=== PATIENT | female | born 1935 | race Caucasian/White ===

== ENCOUNTER 2019-09-29 09:04 | Inpatient (IN) | payer MEDICARE, OTHER ==
[~2019-09-29] VITALS: Ht 154.9 cm; Wt 88.6 kg
[~2019-09-29 09:04] MED LIST: ATOR40TA PO; BENADRYL25 MG PO; ENOX100I SC; FLUT44OIA INH; FURO20 PO; Hydrochloroth12.5 MG PO; SERT100 PO; SERT50 PO; Tylophen500 MG PO; VALS80 PO; [UNRECOGNIZED DRUG - OTHER] PO
[2019-09-29 09:29] LABS: BASOPHILS ABSOLUTE AUTO 0.02 K/mm3 (0.00-0.23); BASOPHILS PERCENT AUTO 0 % (0-2); EOSINOPHILS ABSOLUTE AUTO 0.26 K/mm3 (0.00-0.68); EOSINOPHILS PERCENT AUTO 3 % (0-6); Hematocrit 35.5 % (33.0-51.0); IMMATURE GRAN ABSOLUTE AUTO 0.04 K/mm3 (0.00-0.10); IMMATURE GRAN PERCENT AUTO 0 % (0-1); LYMPHOCYTES ABSOLUTE AUTO 3.05 K/mm3 (0.84-5.20); LYMPHOCYTES PERCENT AUTO 29 % (21-46); MONOCYTES ABSOLUTE AUTO 0.58 K/mm3 (0.16-1.47); MONOCYTES PERCENT AUTO 6 % (4-13); Mean Corpuscular HGB 28.6 pg (26.0-34.0); Mean Corpuscular Volume 92 fL (80-100); Mean Platelet Volume 11.4 fL (9.1-12.4); NEUTROPHILS ABSOLUTE AUTO 6.42 K/mm3 (1.96-9.15); NEUTROPHILS PERCENT AUTO 62 % (41-73); Platelet Count 223 K/mm3 (150-400); RDW Coefficient Variation 13.9 % (11.7-14.2); RDW Standard Deviation 47.6 fL (35.1-46.3); Red Blood Cell Count 3.84 M/mm3 (3.80-5.20); White Blood Cell Count 10.37 K/mm3 (4.00-11.30)
[2019-09-29 09:46] LABS: Albumin, Blood 3.8 g/dL (3.4-5.0); Albumin/Globulin Ratio 1.1 (0.8-1.8); Bilirubin, Total 0.9 mg/dL (0.1-1.0); Bun/Creatinine Ratio 20.3 (12.0-20.0); Calcium, Blood 8.9 mg/dL (8.5-10.1); Creatinine, Blood 1.23 mg/dL (0.40-1.00); Free Thyroxine 1.12 ng/dL (0.70-1.60); Globulin, Blood 3.5 g/dL (2.2-4.0); Magnesium, Blood 2.2 mg/dL (1.6-2.4); Potassium, Blood 3.7 mmol/L (3.5-5.5); Total Protein, Blood 7.3 g/dL (6.4-8.2); Troponin I 0.186 ng/mL (0.000-0.040)
[2019-09-29 09:51] LABS: Thyroid Stimulating Hormone 3.06 uIU/mL (0.360-4.800)
[2019-09-29] MEDS ORDERED: ELIQUIS5 MG PO (11:02)
[2019-09-29] MEDS ORDERED: LOSA25 PO (11:03)
[2019-09-29] MEDS ORDERED: ATOR40TA PO (11:03)
[2019-09-29] MEDS ORDERED: SERT100 PO (11:03)
[2019-09-29] MEDS ORDERED: TORSE20 PO (11:04)
[2019-09-29] MEDS ORDERED: LEVSOD100 PO (12:27)
[2019-09-29] MEDS ORDERED: POTCHL20ER PO (12:27)
[2019-09-29 13:33] LABS: International Normalized Ratio 1.05; Prothrombin Time Results 11.1 Sec (9.7-11.5)
--- NOTE | 2019-09-29 15:00 | NUR ---
RECEIVED THIS PATIENT FROM THE SLICING MACHINE FEEDER. S/P TRANSVENOUS PACER PLACED WITH R GROIN ACCESS. VV1 RATE 60 MV=2 V+5. ACCESS SITE IS COVERED WITH CLEAR TEGADERM DRESSING. PT IS ALERT AND ORIENTED. PT STATES TO HAVE A DULL CHEST PAIN OF 1-2/10. PT STATE SHE FEELS SHORT OF BREATH.
--- NOTE | 2019-09-29 16:28 | NUR ---
PT WAS HELPED TO THE BEDPA. PT GOT MORE SHORT OF BREATH WITH EXCERTION. PT IS VENTRICULARLY PACED WITH 100% CAPTURE. PT WAS STARTED ON 02 RE: SHORTNESS OF BREATH. O2 SATURATION HAS BEEN >90% SINCE ARRIVAL TO THE UNIT.
--- NOTE | 2019-09-29 17:05 | NUR ---
PT HAS STATED POLST LIMITED CODE BUT PT WANTS TO BE A FULL CODE AT THIS TIME. DR. DONALD WAS NOTIFIED OF PT'S FULL CODE PREFERENCE.
--- NOTE | 2019-09-29 17:55 | NUR ---
DR. SANDERS WAS NOTIFIED REGARDING PT'S TROPONIN RESULT. HE WAS ALSO NOTIFIED PT RECEIVED A TOTAL OF 20MG OF HYDRALAZINE DUE PT'S SBP UP TO 188. HE WAS NOTIFIED REGARDING PT'S COMPLAINTS OF CHEST PAIN 12/06 STILL. ORDERS RECEIVED.
--- NOTE | 2019-09-29 19:16 | NUR ---
SHIFT SUMMARY: PT IS ALERT AND ORIENTED. STILL WITH TRANSVENOUS PACER WITH 100% VENTRICULAR CAPTURE. AFEBRILE. PT STATED CHEST PAIN HAS IMPROVED AFTER RECEIVING 2 INCH OF NITROPASTE.
--- NOTE | 2019-09-29 20:00 | NUR ---
ASSUMED CARE OF PT AT 1915. REPORT RECEIVED AT BEDSIDE. PT'S TRANSVENOUS PACER SITE AT RIGHT GROIN WNL. NO HEMATOMA OR OOZING TO NOTE. PT HAS 100 PERCENT CAPTURE AT THIS TIME. BLOOD PRESSURE SOMEWHAT ELEVATED. PLEASE SEE VITAL SIGHN FLOWSHEET FOR DETAILS. WILL REVIEW CHART AND PLAN OF CARE FOR THIS PT.
--- NOTE | 2019-09-30 | NUR ---
PT CONTINUES WITHOUT CHEST PAIN. TRANSVENOUS PACER 100 PERCENT. BLOOD PRESSURES HAVE IMPROVED. PT ABLE TO ADJUST POSITIONS IN BED ON HER OWN. NO ISSUES TO REPORT.
--- NOTE | 2019-09-30 03:00 | NUR ---
NO CHANGES TO PREVIOUS ASSESSMENTS. NO COMPLAINTS BY PT. REMAINS ALERT AND ORIENTED. PLEASANT AND COOPERATIVE WITH CARE AND ASSESSMENTS.
[2019-09-30 03:57] LABS: BASOPHILS ABSOLUTE AUTO 0.01 K/mm3 (0.00-0.23); BASOPHILS PERCENT AUTO 0 % (0-2); EOSINOPHILS ABSOLUTE AUTO 0.06 K/mm3 (0.00-0.68); EOSINOPHILS PERCENT AUTO 1 % (0-6); Hematocrit 31.3 % (33.0-51.0); Hemoglobin 9.8 g/dL (11.5-16.0); IMMATURE GRAN ABSOLUTE AUTO 0.02 K/mm3 (0.00-0.10); IMMATURE GRAN PERCENT AUTO 0 % (0-1); LYMPHOCYTES ABSOLUTE AUTO 1.25 K/mm3 (0.84-5.20); LYMPHOCYTES PERCENT AUTO 16 % (21-46); MONOCYTES ABSOLUTE AUTO 0.63 K/mm3 (0.16-1.47); MONOCYTES PERCENT AUTO 8 % (4-13); Mean Corpuscular HGB 28.6 pg (26.0-34.0); Mean Corpuscular HGB Conc 31.3 g/dL (31.5-36.5); Mean Corpuscular Volume 91 fL (80-100); Mean Platelet Volume 11.2 fL (9.1-12.4); NEUTROPHILS ABSOLUTE AUTO 5.91 K/mm3 (1.96-9.15); NEUTROPHILS PERCENT AUTO 75 % (41-73); Platelet Count 184 K/mm3 (150-400); RDW Coefficient Variation 14.1 % (11.7-14.2); RDW Standard Deviation 46.9 fL (35.1-46.3); Red Blood Cell Count 3.43 M/mm3 (3.80-5.20); White Blood Cell Count 7.88 K/mm3 (4.00-11.30)
[2019-09-30 04:09] LABS: International Normalized Ratio 1.03; Prothrombin Time Results 10.9 Sec (9.7-11.5)
[2019-09-30 04:21] LABS: Magnesium, Blood 2.8 mg/dL (1.6-2.4)
[2019-09-30 04:23] LABS: Albumin, Blood 3.3 g/dL (3.4-5.0); Albumin/Globulin Ratio 1.1 (0.8-1.8); Calcium, Blood 8.7 mg/dL (8.5-10.1); Creatinine, Blood 1.15 mg/dL (0.40-1.00); Potassium, Blood 3.9 mmol/L (3.5-5.5); Total Protein, Blood 6.3 g/dL (6.4-8.2)
--- NOTE | 2019-09-30 06:54 | NUR ---
PT HAS BEEN ABLE TO REST THIS NIGHT WITHOUT COMPLAINTS OF CHEST PAIN OR PRESSURE. DENIES ANY FEELINGS OF SYNCOPE. TRANSVENOUS PACER IN PLACE AND HAS 100 PERCENT CAPTURE. WILL CONTINUE TO MONITOR PT, AND WILL REPORT OFF TO ONCOMING RN.
--- NOTE | 2019-09-30 08:00 | NUR ---
INITIAL ASSESS PT RESTING IN BED, OPENS EYES TO VOICE. PT A&OX4, PLEASANT, NO C/O OR REQUESTS. PT STATES SHE IS NPO FOR PROCEDURE. EDUCATION PROVIDED. HEART RATE 61 PER TRANS PACER VIA RT GROIN, DRSG WNL, MURMUR NOTED. LUNGS CLEAR ON 1L/NC. BS PRESENT. SKIN WNL EXCEPT AMPUTATION TO TOP HALF OF LEFT FOREFINGER AND BANDAIDES TO 2nd AND 3rd TOES R/T "FINANCIAL ADVOCATE CUT NAILS AND MADE THEM BLEED." BED IN LOW POSITION, RAILS UP X3, CALL LIGHT IN REACH, WILL CONTINUE TO MONITOR PT THIS SHIFT.
--- NOTE | 2019-09-30 09:00 | NUR ---
HORSES OR MULES TEAMSTER PT GONE TO HORSES OR MULES TEAMSTER, 09- DAUGHTER TO ICU LOOKING FOR PT AND TAKEN TO HORSES OR MULES TEAMSTER WAITING AREA BY STAFF.
--- NOTE | 2019-09-30 09:42 | NUR ---
BACK FROM PARTS COUNTERPERSON PT RETURNED FROM PARTS COUNTERPERSON PER BED, DESIREE AND STAFF AT HER SIDE. REPORT RECEIVED AND QUESTIONS ANSWERED. RT RADIAL TR BAND WITH BRUISING NOTED BUT NO BLEEDING. VS OBTAINED AND WNL. WILL MONITOR FOR BLEEDING. REMINDED PT TO KEEP RT WRIST STRAIGHT.
--- NOTE | 2019-09-30 10:10 | NUR ---
HOSPITALIST ROUNDS HERE TO DISCUSS LABS AND MEDS WITH PT. HE INFORMED PT SHE HAS SOME KIDNEY PROBLEMS THAT WILL NEED F/U. PT DTR AND SISTER AT BEDSIDE AND ALL QUESTIONS ANSWERED. DIET DISCUSSED AND PT WILL BE NPO AFTER MIDNIGHT FOR POSSIBLE PACE MAKER PLACEMENT TOMORROW.
--- NOTE | 2019-09-30 12:30 | NUR ---
PT CONTINUES TO REST IN BED, FAMILY AT BEDSIDE. PT CONTINUES TO DENY PAIN/DISCOMFORT. PT VS STABLE AFTER DISCHARGE DOOR OPERATOR AND WILL START REMOVING AIR FROM TR BAND AT THIS TIME. BRUISING NOTED UNDER BAND AND WILL CONTINUE TO EVALUATE PT VS, PAIN, BRUISING, AND S/S OF BLEEDING. PT REMAINS ON TRANSVENOUS PACER VIA RT GROIN AT RATE OF 61, V=5, VV1. SL TO LORENZO LAL.
--- NOTE | 2019-09-30 12:30 | NUR ---
START AIR RELEASE FROM RT RADIAL BAND AFTER ASSESSMENT COMPLETED, ATTEMPTED RELEASE OF 2cc OF AIR FROM RT RADIAL TR BAND. POSSIBLE SCANT BLEEDING AND 2cc REINSERTED. WILL CONTINUE WITH SITE CHECKS AND AIR RELEASE EVERY 15-30 MINUTES POSSIBLE UNTIL COMPLETED.
--- NOTE | 2019-09-30 18:00 | NUR ---
SHIFT SUMMARY PT RESTS IN BED THIS SHIFT, REFUSES TO TURN SIDE TO SIDE BUT SHIFTS WEIGHT TO REPOSITION SELF FOR COMFORT, MIN ASSIST AT TIME. HEART RATE REMAINS AT 61 ON TRANS VENOUS PACER VIA RT GROIN, WITH SETTING OF MV 5, VOLT 2. LUNGS REMAIN CLEAR, SAT >90% ON 1L/NC. BS PRESENT AND PT ATE 50% OF MEALS. SKIN REMAINS WITHIN NORMAL LIMITS, REMOVED TR BAND FROM RT RADIAL AT 1800 [address] OPSITE [address]ACED. SL TO BILAT AC REMAIN WNL. B/P DROPS AT TIMES WHEN PT RESTING QUIETLY WITH EYES CLOSED. AFEBRILE THIS SHIFT. FAMILY HERE OFF AND ON THIS SHIFT AND SUPPORTIVE OF PT. BED REMAINS LOW, CALL LIGHT IN REACH, HOB ADJUSTED FOR PT COMFORT. WILL CONTINUE TO MONITOR PT.
--- NOTE | 2019-09-30 20:00 | NUR ---
ASSUMED CARE OF PT AT 1915. REPORT RECEIVED AT BEDSIDE. PT PRESENTS IN BED RESTING. TRANSVENOUS PACER IN PLACE. SECURED AND HAS 100 PERCENT PACING. NO CHANGES HAVE BEEN MADE TO PACER. RIGHT RADIAL ACCESS WITH OPSITE DRESSING. NO HEMATOMA OR BLEEDING TO NOTE. WILL REVIEW CHART AND PLAN OF CARE FOR THIS PT.
--- NOTE | 2019-09-30 23:13 | NUR ---
PT RESTING IN BED AT THIS TIME. HAS NOT HAD ANY CHANGES IN CARDIAC RHYTHM. REMAINS 100 PERCENT PACED. NO COMPLAINTS OF CHEST PAIN OR PRESSURE. WILL CONTINUE TO MONITOR.
--- NOTE | 2019-10-01 02:22 | NUR ---
PT CURRENTLY RESTING IN BED. HAS BEEN NPO SINCE MIDNIGHT PENDING PACEMAKER PLACEMENT IN AM. PT HAS NO COMPLAINTS OF CHEST PAIN OR PRESSURE. NO ISSUES TO NOTE.
--- NOTE | 2019-10-01 06:23 | NUR ---
PT CONTINUES WITHOUT ANY COMPLAINTS OF CHEST PAIN OR PRESSURE. RIGHT RADIAL ACCESS SITE IS WNL. NO OOZING OR HEMATOMA. TRANSVENOUS PACER REMAINS WITH 100 PERCENT V PACING. DID DO SOME PRE-PROCDURAL TEACHING ON POST PACER PLACEMENT. LIMITATIONS OF ARM MOVEMENT AND AVOIDANCE OF WIRE MIGRATION FOR NEW PACER. PT REMAINS ALERT AND ORIENTED. PLEASANT AND COOPERATIVE WITH CARE. WILL CONTINUE TO MONITOR, AND WILL REPORT OFF TO ONCOMING RN.
--- NOTE | 2019-10-01 07:30 | NUR ---
INITIAL ASSESS PT RESTING IN BED, AROUSES TO VOICE, A&OX4. PT INFORMED RELATIONSHIP SPECIALIST IS HERE TO TAKE HER DOWN FOR THE PACE MAKER INSERTION. PT REMAINS ON TRANS PACER VIA RT GROIN, RATE AT 61. LUNGS CLEAR. BS PRESENT. SKIN WNL. VS WNL. SL X2 IN ACs.
--- NOTE | 2019-10-01 07:35 | NUR ---
LEFT FOR PACE MAKER PLACEMENT PT A&OX4, TAKEN PER BED TO SURGERY FOR PERMANENT PACE MAKER PLACEMENT. BRIEF REPORT AND TRANCUTANEOUS PACER SETTINGS GIVEN TO
--- NOTE | 2019-10-01 10:25 | NUR ---
BACK FROM PACEMAKER INSERT PT RETURNED FROM XRAY AND PACER INSERTION. BRENDA QUIÑONEZ AND BRENDA POSEY AT PT BEDSIDE. PT REPORT RECEIVED AND HAS A DUAL PACER AND IS 100% VENT PACED WITH SOME ATRIAL PACING NOTED. BRENDA QUIÑONEZ REPORTS PT B/P 130-150s/ 70-80s. HE ALSO REPORTS SHE RECEIVED VANCO. BRENDA QUIÑONEZ, REPORTS PT WAS IN 2nd DEGREE TYPE 2 RHYTHM WITH A HEART RATE OF 30s WHEN NOT PACED. HE REPORTS PT IS DOING WELL BUT NEEDS THE SHEATH REMOVED FROM HER RT GRIN. PT IS ALERT, ORIENTED, DENIES PAIN. SL X2 IN BILAT ACs. SCDs REAPPLIED WHEN BACK TO RM. HR IS PACED AT 61bpm. LUNGS ARE CLEAR AND PT IS ON RM AIR WITH SAT 93-94%. B/P SLIGHTLY ELEVATED AT 180/74. BS ACTIVE X4. PT DENIES NEED FOR BATHROOM CURRENTLY. SPLINT REMAINS TO RT WRIST DUE TO RT RADIAL INSERT SITE FOR HEART CATH ON 09/30. DRSG TO RT GRION C/D/I. ALL PULSES PRESENT. BED LOW, CALL LIGHT IN REACH, AND FAMILY AT BEDSIDE. WILL CONTINUE TO MONITOR PT.
[2019-10-01 11:31] LABS: Calcium, Blood 8.7 mg/dL (8.5-10.1); Creatinine, Blood 1.1 mg/dL (0.40-1.00); Magnesium, Blood 2.8 mg/dL (1.6-2.4); Potassium, Blood 3.9 mmol/L (3.5-5.5)
--- NOTE | 2019-10-01 12:00 | NUR ---
GROIN CATH PULLED PRIMARY NURSE IN ROOM WITH PT WITH ORIENTING NURSE TO PULL VENOUS SHEATH. SITE ASSESSED AND OLD DRSG REMOVED. PT BED FLAT, VS X5 MINS, PULSE OX ON RT TOE. PROCEDURE EXPLAINED TO PT AND FAMILY. STERILE GLOVES DONNED, MASK IN PLACE, PULSE SITE PALPATED ABOVE RT INSERT SITE. SHEATH PULLED DURING PT EXHALATION. MANUAL PRESSURE HELD FOR 10 MINUTES WITH COLEEN DRSG IN PLACE. NO BLEEDING, HEMATOMA NOTED TO SITE, SM BRUISING NOTED TO RT LABIA MAJORA UNCHANGED FROM BEFORE PULLING SHEATH. PT INSTRUCTED TO LAY FLAT AND STILL FOR TIME BEING. FREQ. VS CHECKS CONTINUED. FREQ. INSERT SITE OBSERVATION. WILL CONTINUE TO MONITOR PT FOR S/S OF BLEEDING.
--- NOTE | 2019-10-01 13:35 | NUR ---
STATUS CHANGE TO PCU DR SANDERS UPDATED ON PT CONDITION; RT GROIN SITE WITH NO BLEEDING, B/P ELEVATED TO 170s SYSTOLIC, AND REQUEST STATUS CHANGE. GAVE ORDER FOR STATUS CHANGE TO PCU, MONITOR B/P FOR NOW R/T AORTIC STENOSIS- DOESN'T WANT IT TOO LOW. NO OTHER ORDERS AT THIS TIME. REPEATED AND STATUS CHANGE ORDER PLACED.
--- NOTE | 2019-10-01 14:00 | NUR ---
MIDSHIFT ASSESS PT CONTINUES TO REST IN BED, HOB ELEVATED SMALL AMT AND PT GIVEN SIPS OF ICE WATER. HEART RATE REMAINS AT 60, 100% VENTRICULAR PACED AND FREQ. ATRIAL PACED. PT DENIES PAIN THIS SHIFT. LUNGS REMAIN CLEAR, RM AIR. BOWEL SOUNDS PRESENT, VOIDED PER BEDPAN WITH ASSIST X2. RT GROIN DRSG REMAINS WNL WITH SMALL AMT DRNG NOTED. REMINDED PT TO KEEP LT ARM DOWN AND RT LEG STRAIGHT. PULSES STRONG AND NO S/S OF BLEEDING NOTED. LT PACER SITE REMAIN C/D/I WITH SLIGHT AMT OF EDEMA NOTED TO SITE. BRUISING TO RT LABIA MAJORA AND RT WRIST. B/P CONTINUES TO GO UP TO 170s SYSTOLIC, SATS MID 90s, WILL CALL DR IF NEEDS. BED LOW POSITION, CALL LIGHT IN REACH, WILL CONTINUE TO MONITOR FREQUENTLY.
--- NOTE | 2019-10-01 15:00 | NUR ---
PAIN & B/P MED GIVEN PT AWAKE, ALERT, RT GROIN AND PULSES CHECKED. PT C/O PAIN TO SHOULDERS 2/10 AND PILLOW ADJUSTED FOR COMFORT. PT VOICED RELIEF. 1510- PT STATES IS HUNGRY. HOB ELEVATED TO 30 DEGREES. LUNCH HEATED AND GIVEN TO PT, DAUGHTER TO ASSIST WITH MEALS. PULSES AND DRSG CHECKED AND NO NEW DRNG. 1525- PT CONTINUES TO SIT UP IN BED EATING "LUNCH". NORVASC 2.5mg AND TYLENOL 650mg GIVEN PO IN APPLESAUCE WITHOUT DIFFICULTY. EDUCATION GIVEN R/T B/P MED AND PAIN MEDICATION. WILL CONTINUE TO MONITOR B/P Q15 MINS AND WILL F/U ON PAIN. FAMILY REMAINS AT BEDSIDE. BED LOW, CALL LIGHT IN REACH, NO FURTHER REQUESTS AT THIS TIME.
--- NOTE | 2019-10-01 15:10 | NUR ---
B/P MED INCREASE PAGED DR SANDERS R/T PT ELEVATED SYSTOLIC B/P AND HE RETURNED MY CALL. ORDER RECEIVED TO INCREASE NORVASC TO 5mg PO BID AND GIVE AN EXTRA 2.5mg NORVASC PO NOW. ORDERS REPEATED AND PLACED IN SYSYTEM BY THIS RN. NO FURTHER ORDERS RECEIVED AT THIS TIME.
--- NOTE | 2019-10-01 17:45 | NUR ---
SHIFT SUMMARY PT CONTINUES TO REST IN BED, SITS UP IN BED FOR MEALS. PT REMAINS A&OX4, C/O MILD SHOULDER PAIN TODAY AND TYLENOL GIVEN X1. PT HAD ELEVATED SYSTOLIC B/P OF 170-180s AND NORVASC INCREASED PER DR SANDERS ORDER. PT B/P HAVE IMPROVED WITH CURRENT SYSTOLIC B/P OF 128. PT HEART RATE IS 100% VENTRICULAR PACED AND ALSO HAS SOME ATRIAL PACING PRESENT. DUAL CHAMBER PACER PLACED THIS MORNING. PT HAS SCANT DRNG FROM PACER INSERT SITE WITH DRSG WNL. LUNGS REMAIN CLEAR BUT SATS DOWN TO 88-89% THIS EVENING WHILE ASLEEP AND OXYGEN APPLIED AT 1L/NC. BOWEL SOUNDS REMAIN ACTIVE. PT HAS ONLY VOIDED ONCE TODAY, URINE CONCENTRATED SHAN. PT HAS DIFFICULTY SWALLOWING AND MEDS ARE GIVEN IN APPLESAUCE. SKIN IS WNL EXCEPT SCANT BRUISING TO RT WRIST FROM HEART CATH AND RT LABIA MAJORA FROM TRANS PACER INSERTION, DRSG TO RT GROIN PUNCTURE SITE FROM TRANS PACER- WHICH WAS REMOVED THIS AM, DRSG TO PACER SITE IN LT CHEST WALL. PT IS ABLE TO REPOSITION SELF IN BED BUT REFUSES TURNS FROM SIDE TO SIDE TODAY. BED REMAINS IN LOW POSITION, CALL LIGHT AND TABLE WITHIN REACH, AND WILL CONTINUE TO MONITOR. BEDSIDE REPORT WILL BE GIVEN TO PROPERTY INVESTOR AT END OF THIS SHIFT.
--- NOTE | 2019-10-01 20:17 | NUR ---
[place] of Care: Care assumes at 1900hr. Patient sleeping, easily roused to verbal stimuli. Denies pain, discomfort, SOB, or dyspnea. VSS, O2- 91-94% on 1L/NC. Heart rhythm shows 100% paced, intermittent AV pacing, mostly V-pacing. Pacemaker placed today on day shift to lt upper chest wall. Pacemaker site appears wnl, very scant amount of sanguineous drainage noted, no active bleeding. Patient educated on and cooperative to restrictions to lt arm r/t pacemaker placement. Venous access site (from previous venous pacing) to rt groin appears wnl, gauze and clear dressing in place, no s/s of active bleeding, distal limb wnl. Rt radial arterial access site appears wnl, clear occlusive dressing in place, no s/s of active bleeding/hematoma. Call light in reach, makes needs known. Will continue to monitor for pain, safety, comfort.
[2019-10-02 03:37] LABS: BASOPHILS ABSOLUTE AUTO 0.01 K/mm3 (0.00-0.23); BASOPHILS PERCENT AUTO 0 % (0-2); EOSINOPHILS ABSOLUTE AUTO 0.38 K/mm3 (0.00-0.68); EOSINOPHILS PERCENT AUTO 6 % (0-6); Hematocrit 30.5 % (33.0-51.0); Hemoglobin 9.5 g/dL (11.5-16.0); IMMATURE GRAN ABSOLUTE AUTO 0.01 K/mm3 (0.00-0.10); IMMATURE GRAN PERCENT AUTO 0 % (0-1); LYMPHOCYTES ABSOLUTE AUTO 0.78 K/mm3 (0.84-5.20); LYMPHOCYTES PERCENT AUTO 12 % (21-46); MONOCYTES ABSOLUTE AUTO 0.43 K/mm3 (0.16-1.47); MONOCYTES PERCENT AUTO 7 % (4-13); Mean Corpuscular HGB 28.3 pg (26.0-34.0); Mean Corpuscular HGB Conc 31.1 g/dL (31.5-36.5); Mean Corpuscular Volume 91 fL (80-100); Mean Platelet Volume 11.4 fL (9.1-12.4); NEUTROPHILS ABSOLUTE AUTO 4.81 K/mm3 (1.96-9.15); NEUTROPHILS PERCENT AUTO 75 % (41-73); Platelet Count 151 K/mm3 (150-400); RDW Coefficient Variation 13.9 % (11.7-14.2); RDW Standard Deviation 46.6 fL (35.1-46.3); Red Blood Cell Count 3.36 M/mm3 (3.80-5.20); White Blood Cell Count 6.42 K/mm3 (4.00-11.30)
[2019-10-02 03:53] LABS: Bun/Creatinine Ratio 20.4 (12.0-20.0); Calcium, Blood 8.5 mg/dL (8.5-10.1); Creatinine, Blood 1.08 mg/dL (0.40-1.00); Potassium, Blood 4.2 mmol/L (3.5-5.5)
--- NOTE | 2019-10-02 08:00 | NUR ---
INITIAL ASSESMENT PT CALM AND COOPERATIVE AND VERY PLEASENT. OOB TO COMMODE AND THEN TO CHAIR WITHOUT DIFFICULTY. ALERT AND ORIENT TIMES 4, DENIES PAIN. PACED WITH PALP PULSES AND PACER INCISION SITE CDI AND NO S/S OF INFECTION. HYPERTENSIVE WITH AM RX TO FOLLOW. SL AND NO EDEMA. 2L NC WILL WEAN TOLERATED WITH LUNG SOUNDS CLEAR AND DIM BILAT. TOLERATING PO INTAKE WITH GOOD APPETITE. NO BM ABD SOFT ROUND OBESE AND NON TENDER WITH BTS T/O UO ADEQUATE DARK SHAN CLEAR. WILL CONT TO MONITOR AND D/C HOME PER MD ORDER.
[2019-10-02] MEDS ORDERED: ACET325 PO (09:53)
[2019-10-02] MEDS ORDERED: AMLO10 PO (09:54)
[2019-10-02] MEDS ORDERED: ASPI81CH PO (09:55)
[2019-10-02] MEDS ORDERED: ONDA4ODT PO (09:59)
--- NOTE | 2019-10-02 11:38 | NUR ---
PT DISCHARGE PT DISCHARGE INSTRUCTIONS COMPLETE AND ALL QUESTIONS AND CONCERNS ADDRESSED AT THIS TIME. PT BELONGINGS GIVEN TO PT AND FAMILY AND PIV D/C. PT TRANSPORTED VIA TO [facility] WITH SISTER.
== END 2019-10-02 11:20 | disposition home or self-care (01) | DRG 242 ==
LOC: ER 09:04 → ICUW 12:58 → ICUE 10-01 16:26
PROVIDERS: Emergency Medicine; Internal Medicine Cardiovascular Disease; Nurse Practitioner Acute Care; ADMIT Family Medicine
PROC: 5A1223Z Performance of Cardiac Pacing, Continuous (ICD-10-PCS; principal; 2019-09-29)
PROC: B2111ZZ Fluoroscopy of Multiple Coronary Arteries using Low Osmolar Contrast (ICD-10-PCS; 2019-09-30)
PROC: 0JH606Z Insertion of Pacemaker, Dual Chamber into Chest Subcutaneous Tissue and Fascia, Open Approach (ICD-10-PCS; 2019-10-01)
PROC: 02HK3JZ Insertion of Pacemaker Lead into Right Ventricle, Percutaneous Approach (ICD-10-PCS; 2019-10-01)
PROC: 02H63JZ Insertion of Pacemaker Lead into Right Atrium, Percutaneous Approach (ICD-10-PCS; 2019-10-01)
DX: I44.1 Atrioventricular block, second degree (principal); I21.A1 Myocardial infarction type 2; I50.32 Chronic diastolic (congestive) heart failure; I13.0 Hypertensive heart and chronic kidney disease with heart failure and stage 1 through stage 4 chronic kidney disease, or unspecified chronic kidney disease; E03.9 Hypothyroidism, unspecified; I45.2 Bifascicular block; I47.2 Ventricular tachycardia; I48.0 Paroxysmal atrial fibrillation; I35.0 Nonrheumatic aortic (valve) stenosis; N18.3 Chronic kidney disease, stage 3 (moderate); Z85.44 Personal history of malignant neoplasm of other female genital organs; Z86.711 Personal history of pulmonary embolism; I27.20 Pulmonary hypertension, unspecified; E78.5 Hyperlipidemia, unspecified; I25.10 Atherosclerotic heart disease of native coronary artery without angina pectoris; E11.22 Type 2 diabetes mellitus with diabetic chronic kidney disease
CPT/HCPCS: 33208; 33210; 36415; 71045; 71046; 80048; 80053; 83735; 83880; 84439; 84443; 84484; 85025; 85610; 86850; 86900; 86901; 93005; 93010; 93454; 94761; 96365; 96368; 99152; 99153; 99285-25; A9270; C1769; C1785; C1894; C1898; J0360; J1644; J2250; J3010; J3370; J3475; J3480; J7030; J7040; Q9967

== ENCOUNTER 2019-10-17 22:18 | Inpatient (IN) | payer MEDICARE, OTHER ==
[~2019-10-17] VITALS: Ht 154.9 cm; Wt 86.3 kg
[~2019-10-17 22:18] MED LIST changes: +ACET325 PO; +AMLO10 PO; +ASPI81CH PO; +ELIQUIS5 MG PO; +LEVSOD100 PO; +LOSA25 PO; +ONDA4ODT PO; +POTCHL20ER PO; +TORSE20 PO
[2019-10-17 22:59] LABS: BASOPHILS ABSOLUTE AUTO 0.03 K/mm3 (0.00-0.23); BASOPHILS PERCENT AUTO 0 % (0-2); EOSINOPHILS ABSOLUTE AUTO 0.21 K/mm3 (0.00-0.68); EOSINOPHILS PERCENT AUTO 2 % (0-6); Hematocrit 18.6 % (33.0-51.0); IMMATURE GRAN ABSOLUTE AUTO 0.05 K/mm3 (0.00-0.10); IMMATURE GRAN PERCENT AUTO 1 % (0-1); LYMPHOCYTES ABSOLUTE AUTO 1.91 K/mm3 (0.84-5.20); LYMPHOCYTES PERCENT AUTO 21 % (21-46); MONOCYTES ABSOLUTE AUTO 0.56 K/mm3 (0.16-1.47); MONOCYTES PERCENT AUTO 6 % (4-13); Mean Corpuscular HGB 28.6 pg (26.0-34.0); Mean Corpuscular HGB Conc 31.2 g/dL (31.5-36.5); Mean Corpuscular Volume 92 fL (80-100); Mean Platelet Volume 11.2 fL (9.1-12.4); NEUTROPHILS ABSOLUTE AUTO 6.43 K/mm3 (1.96-9.15); NEUTROPHILS PERCENT AUTO 70 % (41-73); Platelet Count 204 K/mm3 (150-400); RDW Standard Deviation 49.7 fL (35.1-46.3); Red Blood Cell Count 2.03 M/mm3 (3.80-5.20); White Blood Cell Count 9.19 K/mm3 (4.00-11.30)
[2019-10-17 23:00] LABS: Hemoglobin 5.8 g/dL (11.5-16.0)
[2019-10-17 23:13] LABS: Albumin, Blood 3.4 g/dL (3.4-5.0); Albumin/Globulin Ratio 1.3 (0.8-1.8); Bilirubin, Total 0.5 mg/dL (0.1-1.0); Bun/Creatinine Ratio 31.9 (12.0-20.0); Calcium, Blood 8.5 mg/dL (8.5-10.1); Creatinine, Blood 1.19 mg/dL (0.40-1.00); Globulin, Blood 2.7 g/dL (2.2-4.0); Potassium, Blood 3.8 mmol/L (3.5-5.5); Total Protein, Blood 6.1 g/dL (6.4-8.2); Troponin I 0.164 ng/mL (0.000-0.040)
[2019-10-18 00:32] LABS: International Normalized Ratio 1.09; Prothrombin Time Results 11.5 Sec (9.7-11.5)
--- NOTE | 2019-10-18 02:52 | NUR ---
PATIENT ARRIVED FROM THE ER @0041. PATIENT WAS HAVING 8/10 PAIN, NO NAUSEA, NO VOMITING. PAIN LOCATED HIGH IN THE MID ABDOMEN. PAIN INTENSIFIES WITH DEEP BREATH AND RADIATES TO HER BACK. 1ST UNIT PRB's STARTED, SEE TX RECORD. @0255 PATIENT IS NOW PAIN FREE ABLE TO TURN SELF IN BED TO POSITION OF COMFORT. NO NAUSEA, NO VOMITING. ABDOMENT IS SOFT, NON TENDER, WITHOUT DISTENTION. WILL START 2ND UNIT OF BLOOD AFTER COMPLETION OF 1ST.
--- NOTE | 2019-10-18 04:34 | NUR ---
2ND UNIT OF PRBC's STARTED. PATIENT IS HAVING NO PAIN, DOES HAVE A 'SENSE OF SHORTNESS OF BREATH", HOWEVER PATIENT IS BREATHING AT 16BPM WITHOUT ANY S/S OF DISTRESS. NO OTHER ACUTE CHANGES.
[2019-10-18 08:09] LABS: Hematocrit 21.8 % (33.0-51.0); Mean Corpuscular HGB Conc 32.1 g/dL (31.5-36.5); Mean Platelet Volume 10.9 fL (9.1-12.4); Platelet Count 153 K/mm3 (150-400); RDW Coefficient Variation 15.8 % (11.7-14.2); RDW Standard Deviation 49.6 fL (35.1-46.3); White Blood Cell Count 10.15 K/mm3 (4.00-11.30)
[2019-10-18 08:16] LABS: Mean Corpuscular Volume 87 fL (80-100)
[2019-10-18 08:31] LABS: Bun/Creatinine Ratio 29.3 (12.0-20.0); Calcium, Blood 8.1 mg/dL (8.5-10.1); Creatinine, Blood 1.16 mg/dL (0.40-1.00); Potassium, Blood 4.1 mmol/L (3.5-5.5)
[2019-10-18 12:15] LABS: Hematocrit 23.6 % (33.0-51.0); Hemoglobin 7.7 g/dL (11.5-16.0); Mean Corpuscular HGB 28.3 pg (26.0-34.0); Mean Corpuscular HGB Conc 32.6 g/dL (31.5-36.5); Mean Corpuscular Volume 87 fL (80-100); Mean Platelet Volume 10.9 fL (9.1-12.4); Platelet Count 169 K/mm3 (150-400); RDW Coefficient Variation 16.5 % (11.7-14.2); RDW Standard Deviation 51.3 fL (35.1-46.3); Red Blood Cell Count 2.72 M/mm3 (3.80-5.20); White Blood Cell Count 9.84 K/mm3 (4.00-11.30)
[2019-10-18 16:04] LABS: Hematocrit 26.6 % (33.0-51.0); Hemoglobin 8.6 g/dL (11.5-16.0); Mean Corpuscular HGB 28.4 pg (26.0-34.0); Mean Corpuscular HGB Conc 32.3 g/dL (31.5-36.5); Mean Corpuscular Volume 88 fL (80-100); Mean Platelet Volume 10.7 fL (9.1-12.4); NRBC ABSOLUTE 0.02 K/mm3 (0.00-0.02); NRBC Auto 0.2 /100 WBC (0.0-0.2); Platelet Count 159 K/mm3 (150-400); RDW Coefficient Variation 16.2 % (11.7-14.2); RDW Standard Deviation 51.5 fL (35.1-46.3); Red Blood Cell Count 3.03 M/mm3 (3.80-5.20); White Blood Cell Count 10.96 K/mm3 (4.00-11.30)
--- NOTE | 2019-10-18 16:19 | NUR ---
INTO SDS VIA BED. PT A&OX3-REPORTS 4/10 LEFT CHEST PAIN THAT RADIATES TO HER BACK. MURMUR AUSCULTATED. LUNGS DIMINISHED R>L. SATS>90% ON RA. HISTORY AND ALLERGIES REVIEWED. NPO STATUS CONFIRMED.
--- NOTE | 2019-10-18 16:56 | NUR ---
PT TROPONIN 11.8. PT CONTINUES TO HAVE 4-5/10 LEFT CHEST PAIN THAT INTERMITTENTLY RADIATES TO HER BACK AND LEAVES HER SOB WELL. AND DR. ANDERSON AWARE. DR. BROOKS HAS BEEN CONSULTED BY THE HOSPITALIST, BUT HAS NOT YET SEEN PT. ATTEMPTED TO CONTACT DR. BROOKS, BUT HAD TO LEAVE A MESSAGE. THE PUSH ENTEROSCOPY HAS BEEN CANCELLED UNTIL CARDIOLOGY EVALUATES PT. REPORT GIVEN ROOM PCU 6 RN AND PT TRANSEFERED BACK TO ROOM VIA [facility].
--- NOTE | 2019-10-18 17:25 | NUR ---
PT HELD IN DAY SURGERY WHILE DR. ANDERSON SPOKE WITH DR. BROOKS. PT MADE AWARE THAT THE PROCEDURE IS HIGH RISK. CONSENT FOR ANESTHESIA GIVEN.
--- NOTE | 2019-10-18 17:48 | NUR ---
10/[id number] Laure Rutherford [facility] WITH DR. ANDERSON. SEE ANETHESIA RECORD FOR CARE.
--- NOTE | 2019-10-18 19:47 | NUR ---
SHIFT SUMMARY PT REMAINS A&O X4. PT RECIEVED 1 UNIT PRBC'S TODAY. HGB 8.6 CURRENTLY. PT IS ON 2 L O2 VIA NC. PROTONIX DRIP INFUSING @ 10 ML/HR. PT WENT FOR AN UPPER ENDOSCOPY THIS AFTERNOON AFTER CARDIOLOGY WAS CONSULTED FOR HER INCREASED TROPONIN LEVELS. PT HAS HAD MILD INTER CP WITH OCCASIONAL SOB THROUGH THE DAY. VSS. NO N/V OR STOOLS NOTED. TOLERATING CLEAR LIQUIDS W/O INCREASED PAIN. SCD'S ARE ON. CALL LIGHT IN REACH, REPORT GIVEN TO JAY GUTIERREZ. PT IS CURRENTLY SITTING UP IN BED DRINKING JUICE.
[2019-10-19 03:51] LABS: BASOPHILS ABSOLUTE AUTO 0.02 K/mm3 (0.00-0.23); BASOPHILS PERCENT AUTO 0 % (0-2); EOSINOPHILS ABSOLUTE AUTO 0.19 K/mm3 (0.00-0.68); EOSINOPHILS PERCENT AUTO 2 % (0-6); Hematocrit 23.9 % (33.0-51.0); Hemoglobin 7.7 g/dL (11.5-16.0); IMMATURE GRAN ABSOLUTE AUTO 0.06 K/mm3 (0.00-0.10); IMMATURE GRAN PERCENT AUTO 1 % (0-1); LYMPHOCYTES PERCENT AUTO 14 % (21-46); MONOCYTES ABSOLUTE AUTO 0.63 K/mm3 (0.16-1.47); MONOCYTES PERCENT AUTO 7 % (4-13); Mean Corpuscular HGB Conc 32.2 g/dL (31.5-36.5); Mean Corpuscular Volume 87 fL (80-100); Mean Platelet Volume 10.6 fL (9.1-12.4); NEUTROPHILS ABSOLUTE AUTO 7.03 K/mm3 (1.96-9.15); NEUTROPHILS PERCENT AUTO 76 % (41-73); NRBC ABSOLUTE 0.02 K/mm3 (0.00-0.02); NRBC Auto 0.2 /100 WBC (0.0-0.2); Platelet Count 146 K/mm3 (150-400); RDW Coefficient Variation 16.4 % (11.7-14.2); RDW Standard Deviation 51.4 fL (35.1-46.3); Red Blood Cell Count 2.75 M/mm3 (3.80-5.20); White Blood Cell Count 9.23 K/mm3 (4.00-11.30)
[2019-10-19 04:19] LABS: Bun/Creatinine Ratio 27.8 (12.0-20.0); Creatinine, Blood 1.15 mg/dL (0.40-1.00); Potassium, Blood 3.3 mmol/L (3.5-5.5)
--- NOTE | 2019-10-19 05:30 | NUR ---
CONCRETE PAVING SUPERVISOR SUMMARY NO ACUTE CHANGES THIS SHIFT. PT AAOX4 AND PLEASANT. STANDBY ASSIST TO BSC. PT DENIES SOB, N/V, ABD PAIN. PT HAS NOT HAD A BM THIS SHIFT. PT RETURNED FROM EGD AT START OF SHIFT. REMAINS ON PROTONIX DRIP. PT HAS RESTED WELL MOST OF THE NIGHT WITH NO COMPLAINTS. VSS, WILL CONTINUE TO MONITOR.
--- NOTE | 2019-10-19 06:34 | NUR ---
LETTERSET PRESS SET UP OPERATOR SUMMARY AT START OF SHIFT PT VERY ANXIOUS AND CONFUSED. WAS ATTEMPTING TO SIT UP TO SIDE OF BED AND SHOUTING "HELP ME LORD" REPEATEDLY. PT HAD FEVER AROUND 101 AT HS, GIVEN TYLENOL. PT AFEBRILE AT THIS TIME. A FEW HOURS INTO THE SHIFT PT BECAME MUCH MORE ORIENTED AND CALM. PT WAS ABLE TO ANSWER MOST QUESTIONS APPROPRIATELY, KNEW WHERE SHE WAS AND THE YEAR. PT REMAINED THIS WAY FOR REMAINDER OF SHIFT. PT NOTED TO BE HYPOTENSIVE WITH MIDNIGHT VS WITH BP AVG 80-[address] FISHER ORDERED STATED H&H WHICH DID SHOW A DECREASE IN HGB DOWN TO 7.8. A REPEAT H&H WAS ORDERED FOR 4 HOURS AFTER THAT, LAST HGB 7.3. NO SIGNS OF BLEEDING NOTED. PT TO HAVE BONE MARROW BIOPSY THIS AM BY DR GODINEZ. WILL CONTINUE TO MONITOR.
--- NOTE | 2019-10-19 17:53 | NUR ---
SHIFT SUMMARY PT ALERT AND ORIENTED. VS STABLE. O2 SATS REMAIN ABOVE 90% ON 2L NC. BP STABLE. HR PACED. PT RECEIVING 1U PRBC AT THIS TIME. PT REPORTS FEELING DIZZY UPON AMBULATING TO BSC TODAY, BUT HAS IMPROVED. PT DENIES ANY PAIN. WILL CONTINUE TO MONITOR AND REPORT TO ONCOMING RN. CALL LIGHT IN REACH.
[2019-10-19 19:42] LABS: Hematocrit 28.3 % (33.0-51.0)
--- NOTE | 2019-10-19 22:36 | NUR ---
C/O SOB, LABORED RESPIRATIONS AT 18, BP 177/63, HR 59-63 PACED PER ARPAN PALAFOX. TELELMETRY STRIP PRINTED OUT AT THIS TIME, TO PLACE ON CHART. DIAPHORESIS NOTED. BBS COARSE WITH COARSE CRACKLES NOTED ON ENTIRE RIGHT SIDE, FINE CRACKLES NOTED IN SONIA, AND DIMINISHED BREATH SOUNDS NOTED IN LLL. BRENDA RAMIREZ CHARGE NURSE IN PCU CALLED TO BEDSIDE TO ASSESS WELL. PT ABLE TO ANSWER QUIESTIONS AND HAS A GREAT SENSE OF HUMOR DURING HER DISTRESS. CALL PLACED TO GE BERRY STRAIGHTENING MACHINE OPERATOR FOR HOSPITALIST. NEW ORDERS TO BE PLACED BY HER. SAFETY MEASURES IN PLACE. WILL CONTINUE TO MONITOR.
--- NOTE | 2019-10-20 00:20 | NUR ---
NEW 20G PIV PLACED TO LEFT WRIST AFTER REMOVING 18G TO LEFT AC FOR LEAKING. LEAKAGE NOTED AFTER PT TAKEN OFF BEDPAN AND GOWN AND MALONE PAD WERE CHANGED. GREAT BLOOD RETIRN NOTED, FLUSING WITH EASE. K RIDER AND NS RESTARTED, TOLERATING WELL. WILL CONTINUE TO MONITOR.
--- NOTE | 2019-10-20 04:15 | NUR ---
SHIFT SUMMARY DENIES FURTHER SYMPTOMS AT THIS TIME. STATES THAT SHE HAS RESTED WELL SINCE SHE WAS ABLE TO GO TO SLEEP. POST TRANSFUION HGB WAS 9. DENEIS FURTHER NEEDS AT THIS TIME. SAFETY MEASURES IN PLACE. WILL CONTINUE TO MONITOR.
[2019-10-20 05:05] LABS: BASOPHILS ABSOLUTE AUTO 0.02 K/mm3 (0.00-0.23); BASOPHILS PERCENT AUTO 0 % (0-2); EOSINOPHILS ABSOLUTE AUTO 0.29 K/mm3 (0.00-0.68); EOSINOPHILS PERCENT AUTO 3 % (0-6); Hematocrit 30.3 % (33.0-51.0); Hemoglobin 9.6 g/dL (11.5-16.0); IMMATURE GRAN ABSOLUTE AUTO 0.03 K/mm3 (0.00-0.10); IMMATURE GRAN PERCENT AUTO 0 % (0-1); LYMPHOCYTES ABSOLUTE AUTO 0.98 K/mm3 (0.84-5.20); LYMPHOCYTES PERCENT AUTO 11 % (21-46); MONOCYTES ABSOLUTE AUTO 0.68 K/mm3 (0.16-1.47); MONOCYTES PERCENT AUTO 7 % (4-13); Mean Corpuscular HGB Conc 31.7 g/dL (31.5-36.5); Mean Corpuscular Volume 88 fL (80-100); NEUTROPHILS PERCENT AUTO 78 % (41-73); Platelet Count 163 K/mm3 (150-400); RDW Coefficient Variation 16.2 % (11.7-14.2); RDW Standard Deviation 51.8 fL (35.1-46.3); Red Blood Cell Count 3.43 M/mm3 (3.80-5.20)
[2019-10-20 05:20] LABS: Bun/Creatinine Ratio 23.1 (12.0-20.0); Creatinine, Blood 1.04 mg/dL (0.40-1.00); Potassium, Blood 4.5 mmol/L (3.5-5.5)
--- NOTE | 2019-10-20 08:00 | NUR ---
pt laying in bed awake, a/ox3, pleasant and cooperative with care, follows commands well, denies pain, family in room, lungs are clear t/o, resp even and unlabored, no cough noted, hrr, tele in place running sr per monitor, see strip, no edema noted, ppp+1, cap refill <3 sec, vs stable, afebrile, iv site is clear and patent, btx4, abd flat soft nontender, voids without diff, skin c/w/d, maew, aretha, call light in reach.
--- NOTE | 2019-10-20 18:41 | NUR ---
pt up to chair for dinner, doing well, poor appetite, no acute changes, call light in reach.
--- NOTE | 2019-10-20 19:30 | NUR ---
REPORT REC'D FROM BHARATHI GUTIERREZ. PT LYING IN BED IV COMPLETE, FLUSHED AND SL'D. PT DENIES ANY NEEDS AT THIS TIME. ASSESSMENT NOTED. VSS. CALL LIGHT IN REACH.
--- NOTE | 2019-10-20 23:38 | NUR ---
REALIZED IVF STILL NEEDED. NEW BAG REQUESTED AND REC'D, SEE EMAR. PT VSS. NOW RESTING QUIETLY. CALL LIGHT IN REACH.
[2019-10-21 03:47] LABS: Hematocrit 30.4 % (33.0-51.0); Hemoglobin 9.7 g/dL (11.5-16.0)
[2019-10-21 04:00] LABS: Anion Gap 7 mmol/L (6-16); Blood Urea Nitrogen 20 mg/dL (8-24); Bun/Creatinine Ratio 20.7 (12.0-20.0); CO2, Blood 28 mmol/L (21-32); Calcium, Blood 8.1 mg/dL (8.5-10.1); Chloride, Blood 109 mmol/L (98-108); Creatinine, Blood 0.97 mg/dL (0.40-1.00); Glomerular Filtration Rate 58 (60-); Glucose, Blood 105 mg/dL (70-99); Phosphorus, Blood 3.6 mg/dL (2.5-4.9); Potassium, Blood 3.3 mmol/L (3.5-5.5); Sodium, Blood 144 mmol/L (136-145)
--- NOTE | 2019-10-21 06:13 | NUR ---
SHIFT SUMMARY PT UP A FEW TIMES DURING THE NIGHT TO USE BSC. USES CALL LIGHT APPROPRIATELY. VERY PLEASANT AND COOPERATIVE. THANKFUL FOR ASSISTANCE. NO SIG CHANGES THIS SHIFT. NO NEW COMPLAINTS. WILL CONT TO MONITOR/DOCUMENT ANY CHANGES AND REPORT TO DAY SHIFT RN. CALL LIGHT IN REACH.
--- NOTE | 2019-10-21 07:31 | NUR ---
pt laying in bed with eyes closed, wakes easily, denies complaints, had a pretty good night, lungs are clear dim in bases, resp even and unlabored, no cough noted, hrr, tele in place running 100% paced per monitor, murmur noted,see strip, no edema noted, ppp+1, cap refill <3sec, vs stable, afebrile, iv site to rac is clear and patent, btx4, abd flat soft nontender, voids without diff, skin c/w/d, maew, aretha, call light in reach.
[2019-10-21] MEDS ORDERED: PANT40 PO (11:25)
--- NOTE | 2019-10-21 12:36 | NUR ---
pt has been discharged to home with home health. went over discharge instructions with her and her sister, they verbalized understanding. iv removed intact. she has all her belongings. left via wheelchair with receiving specialist in attendence.
== END 2019-10-21 12:38 | disposition home or self-care (01) | DRG 377 ==
LOC: ER 22:18 → PCU 22:19
PROVIDERS: Hospitalist; Internal Medicine; Nurse Practitioner Acute Care; Physician Assistant; Student in an Organized Health Care Education/Training Program; ADMIT Internal Medicine
PROC: 0DC68ZZ Extirpation of Matter from Stomach, Via Natural or Artificial Opening Endoscopic (ICD-10-PCS; 2019-10-18)
PROC: 0W3P8ZZ Control Bleeding in Gastrointestinal Tract, Via Natural or Artificial Opening Endoscopic (ICD-10-PCS; principal; 2019-10-18 12:45)
PROC: 0D5A8ZZ Destruction of Jejunum, Via Natural or Artificial Opening Endoscopic (ICD-10-PCS; 2019-10-18 12:45)
DX: K31.82 Dieulafoy lesion (hemorrhagic) of stomach and duodenum (principal); I21.A1 Myocardial infarction type 2; D62 Acute posthemorrhagic anemia; I50.32 Chronic diastolic (congestive) heart failure; I13.0 Hypertensive heart and chronic kidney disease with heart failure and stage 1 through stage 4 chronic kidney disease, or unspecified chronic kidney disease; E03.9 Hypothyroidism, unspecified; Z79.82 Long term (current) use of aspirin; Z86.711 Personal history of pulmonary embolism; Z95.0 Presence of cardiac pacemaker; Z87.891 Personal history of nicotine dependence; I25.10 Atherosclerotic heart disease of native coronary artery without angina pectoris; N18.3 Chronic kidney disease, stage 3 (moderate); I35.0 Nonrheumatic aortic (valve) stenosis; E78.5 Hyperlipidemia, unspecified; I48.0 Paroxysmal atrial fibrillation
CPT/HCPCS: 36415; 36430; 80048; 80053; 80069; 83880; 84443; 84484; 85014; 85018; 85025; 85027; 85610; 86850; 86900; 86901; 86923; 93005; 93010; 96361; 96374; 96375; 96376; 97116; 97162; 97165; 97530; 97535; 99285-25; C9113; G0378; J1170; J1940; J2250; J2270; J2405; J2704; J2765; J3010; J3480; J7030; J7040; P9016